=== PATIENT | male | born 1950 | race Caucasian/White ===

== ENCOUNTER 2021-09-25 13:57 | Emergency (ER) | payer MEDICARE, SELFPAY ==
[2021-09-25 14:08] VITALS: BP 107/54; PULSE 94; RESP 16; TEMP 37.1; O2SAT 97
[2021-09-25 14:18] VITALS: BP 107/54; PULSE 94; RESP 16; TEMP 37.1; O2SAT 97
--- NOTE | 2021-09-25 14:18 | ED.SKABFB ---
HPI - Skin/Abscess/Foreign Bdy General Chief complaint: Skin/Abscess/Foreign Body Stated complaint: upper lip bleeding Time Seen by Provider: 09/25/21 14:18 Source: patient Mode of arrival: ambulatory Limitations: no limitations History of Present Illness HPI narrative: 71-year-old male presented for complaint of right upper lip bleeding intermittently for 1 week after injury. The daughter/POA states he hit his face on the corner of a door a week ago, and he was instructed to rinse the mouth and spit, and states the ER told him the scans were negative. Hx chemo and radiation; no longer produces saliva. States he will wake in the morning with bleeding lip. 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 Related Data Home Medications Medication Instructions Recorded Confirmed allopurinol 100 mg tablet 1 tablet PO DAILY 09/25/21 09/25/21 amlodipine 5 mg tablet 1 tablet PO DAILY 09/25/21 09/25/21 apixaban 5 mg tablet (Eliquis) 1 tablet PO DAILY 09/25/21 09/25/21 atorvastatin 20 mg tablet 1 tablet PO DAILY 09/25/21 09/25/21 fenofibrate 160 mg tablet 1 tablet PO DAILY 09/25/21 09/25/21 furosemide 20 mg tablet 1 tablet PO DAILY 09/25/21 09/25/21 gabapentin 300 mg capsule 1 cap PO DAILY 09/25/21 09/25/21 isosorbide mononitrate 30 mg 1 tablet PO DAILY 09/25/21 09/25/21 tablet,extended release 24 hr levothyroxine 50 mcg tablet 1 tablet PO DAILY 09/25/21 09/25/21 losartan 25 mg tablet 1 tablet PO DAILY 09/25/21 09/25/21 metformin 500 mg tablet 2 tablet PO DAILY 09/25/21 09/25/21 metoprolol succinate 25 mg 1 tablet PO DAILY 09/25/21 09/25/21 tablet,extended release 24 hr oxycodone 5 mg/5 mL oral solution 5 ml PO PRN PRN Pain 09/25/21 09/25/21 sodium chloride 1,000 mg soluble 1 tablet PO DAILY 09/25/21 09/25/21 tablet Allergies Allergy/AdvReac Type Severity Reaction Status Date / Time No Known Allergies Allergy Verified 09/25/21 14:03 Review of Systems Review of Systems: CONSTITUTIONAL: Denies fever, chills EYES: Denies visual changes, redness, or discharge. ENT: Reports dry mouth and lip bleeding, denies epistaxis at this time CARDIOVASCULAR: Denies chest pain, palpitations, or edema. RESPIRATORY: Denies cough or dyspnea. SKIN: Reports bruising to face NEUROLOGIC: Denies numbness, tingling, or weakness. All systems reviewed & are unremarkable except as noted in HPI and below PMFSH Comments At time of signature, I have reviewed and agree with nursing past medical, surgical, social and family history unless otherwise noted. Please see nursing chart for further information. There is no relevant family history pertinent to the presenting complaint Exam Narrative: GENERAL: ill-appearing, well-nourished, and in no acute distress. HEAD: Normocephalic, bruising noted around nose and eyes EYES: EOMI. No redness or drainage. Conjunctivae normal. ENT: Mucous membranes red and dry. Right upper lip with clot in place; swollen and bruised upper lip. Edentulous. Nares with dried blood bilaterally. [place]. Throat with dried blood. Uvula midline. CHEST: Clear to auscultation. HEART: Regular rate and rhythm. SKIN: Pale, Warm, dry, Capillary refill normal. Poor skin turgor. NEURO: No focal deficits. Alert and oriented x3. Course Course Emergency Course: Patient is aware of diagnosis, understands and agrees to treatment plan. Anticipatory guidance given. Patient agrees to follow-up as directed and is aware of reasons to seek care at the emergency department. Portions of this record may have been created with voice recognition software Level of Care: Express Care Visit Vital Signs Vital signs: Vital Signs Temperature 98.7 F 09/25/21 14:08 Pulse Rate 94 09/25/21 14:08 Respiratory Rate 16 09/25/21 14:08 Blood Pressure 107/54 L 09/25/21 14:08 Pulse Oximetry 97 09/25/21 14:08 Oxygen Delivery Room Air 09/25/21 14:08 Temperature 98.7 F 09/25/21 14:18 Pulse Rate 94 09/25/21 14:18 Respiratory Rate 1
== END 2021-09-25 14:47 | disposition home or self-care (01) ==
PROVIDERS: Emergency Provider Nurse Practitioner Family; PCP Physician Assistant
DX: S01.501D Unspecified open wound of lip, subsequent encounter (principal); W22.8XXD Striking against or struck by other objects, subsequent encounter; Z86.73 Personal history of transient ischemic attack (TIA), and cerebral infarction without residual deficits; Z95.5 Presence of coronary angioplasty implant and graft; E78.00 Pure hypercholesterolemia, unspecified; I10 Essential (primary) hypertension; K21.9 Gastro-esophageal reflux disease without esophagitis; E11.9 Type 2 diabetes mellitus without complications; E03.9 Hypothyroidism, unspecified; Z85.820 Personal history of malignant melanoma of skin; Z85.21 Personal history of malignant neoplasm of larynx; Z92.21 Personal history of antineoplastic chemotherapy; Z92.3 Personal history of irradiation; M19.90 Unspecified osteoarthritis, unspecified site
CPT/HCPCS: 99212; G0463